=== PATIENT | female | born 1990 | race Caucasian/White ===

== ENCOUNTER 2020-11-14 17:36 | Emergency (ER) | payer MEDICAID ==
[2020-11-14 21:13] VITALS: BP 138/92
== END 2020-11-14 21:13 | disposition home or self-care (01) ==
LOC: ED 17:36
DX: J06.9 Acute upper respiratory infection, unspecified (principal); Z20.2 Contact with and (suspected) exposure to infections with a predominantly sexual mode of transmission; Z20.822 Contact with and (suspected) exposure to COVID-19
CPT/HCPCS: J0696

== ENCOUNTER → 2022-01-20 | Outpatient (CLI) | payer MEDICAID ==
[2022-01-20 11:48] LABS: BASO # 0.02 K/mm3 (0.02-0.10); EOS # 0.13 K/mm3 (0.04-0.40); EOS % 1.9 % (1.0-5.0); HEMOGLOBIN 13.1 g/dL (12.5-16.0); LYMPH# 1.15 K/mm3 (1.50-4.00); MEAN CELL VOLUME 87 fl (78-100); MEAN CORPUSCULAR HEMOGLOBIN 28 pg (27-31); MEAN CORPUSCULAR HGB CONC 33 g/dL (33-37); MEAN PLATELET VOLUME 9.8 fl (7.4-10.4); MONO # 0.68 K/mm3 (0.20-0.80); NEU # 5.02 K/mm3 (1.40-6.50); PLATELET COUNT 194 K/mm3 (130-400); RED BLOOD COUNT 4.61 M/mm3 (4.10-5.30); RED CELL DISTRIBUTION WIDTH 14.3 % (11.5-14.5)
[2022-01-20 11:49] LABS: ALBUMIN 3.7 g/dL (3.5-5.0); POTASSIUM 3.4 mmol/L (3.5-5.1)
[2022-01-20 11:50] LABS: CALCIUM 8.5 mg/dL (8.3-10.5)
[2022-01-20 11:52] LABS: TOTAL PROTEIN 6.4 g/dL (6.4-8.3)
[2022-01-20 11:53] LABS: TOTAL BILIRUBIN 0.7 mg/dL (0.2-1.2)
== END ==
LOC: LAB 11:07
PROVIDERS: Physician Assistant
DX: Z00.00 Encounter for general adult medical examination without abnormal findings (principal); Z13.29 Encounter for screening for other suspected endocrine disorder; Z13.220 Encounter for screening for lipoid disorders; J01.90 Acute sinusitis, unspecified; H92.09 Otalgia, unspecified ear; L73.9 Follicular disorder, unspecified; K90.9 Intestinal malabsorption, unspecified; Z83.3 Family history of diabetes mellitus; Z76.89 Persons encountering health services in other specified circumstances

== ENCOUNTER → 2022-10-19 | Outpatient (CLI) | payer BC, MEDICAID ==
[2022-10-19 10:48] LABS: BASO # 0.04 K/mm3 (0.02-0.10); EOS # 0.14 K/mm3 (0.04-0.40); EOS % 1.9 % (1.0-5.0); HEMATOCRIT 40.5 % (37.0-47.0); HEMOGLOBIN 12.9 g/dL (12.5-16.0); LYMPH# 1.79 K/mm3 (1.50-4.00); MEAN CELL VOLUME 84 fl (78-100); MEAN CORPUSCULAR HEMOGLOBIN 27 pg (27-31); MEAN CORPUSCULAR HGB CONC 32 g/dL (33-37); MEAN PLATELET VOLUME 9.5 fl (7.4-10.4); MONO # 0.62 K/mm3 (0.20-0.80); NEU # 4.78 K/mm3 (1.40-6.50); PLATELET COUNT 251 K/mm3 (130-400); RED BLOOD COUNT 4.81 M/mm3 (4.10-5.30); RED CELL DISTRIBUTION WIDTH 14.8 % (11.5-14.5); WHITE BLOOD COUNT 7.4 K/mm3 (4.8-10.8)
[2022-10-19 10:56] LABS: POTASSIUM 3.9 mmol/L (3.5-5.1)
[2022-10-19 10:57] LABS: CALCIUM 9.3 mg/dL (8.3-10.5)
[2022-10-19 10:59] LABS: TOTAL PROTEIN 6.9 g/dL (6.4-8.3)
[2022-10-19 11:01] LABS: TOTAL BILIRUBIN 0.4 mg/dL (0.2-1.2)
[2022-10-19 11:53] LABS: ERYTHROCYTE SEDIMENTATION RATE 2 mm/hr (0-20)
== END ==
LOC: LAB 10:20
PROVIDERS: Physician Assistant
DX: Z13.29 Encounter for screening for other suspected endocrine disorder (principal); Z13.220 Encounter for screening for lipoid disorders; R20.2 Paresthesia of skin; K90.9 Intestinal malabsorption, unspecified; K21.00 Gastro-esophageal reflux disease with esophagitis, without bleeding; E87.6 Hypokalemia; M25.50 Pain in unspecified joint; Z83.3 Family history of diabetes mellitus

== ENCOUNTER → 2022-12-07 | Outpatient (CLI) | payer BC, MEDICAID | LOC: RAD 10:15 | DX: R20.0 Anesthesia of skin (principal) | CPT/HCPCS: A9575 ==

== ENCOUNTER 2023-11-15 15:24 | Emergency (ER) | payer BC ==
[~2023-11-15] VITALS: Ht 165.1 cm; Wt 80.0 kg
[~2023-11-15 15:24] MED LIST: ALDACTONE100 M1 PO; CELECOXIB100 M1 PO; DESVENLAFAXINE50 M3 PO; FLUTICASON0.05 MG/Ac NS; OMEPRAZOLE40 MG PO; VITAMIN D3250 MC2 PO
[2023-11-15 15:33] VITALS: BP 126/75
[2023-11-15] MEDS ORDERED: WELLBUTRIN XL150 M2 PO (15:36)
[2023-11-15] MEDS ORDERED: LAMOTRIGINE25 M1 PO (15:36)
[2023-11-15] MEDS ORDERED: [UNRECOGNIZED DRUG - OTHER] SQ (15:37)
[2023-11-15] MEDS ORDERED: ESTARYLLA 35 MC1 TAB PO (15:38)
[2023-11-15] MEDS ORDERED: LORazepam 0.5 MG TABLET PO ONE (16:00)
[2023-11-15] MEDS ORDERED: ONDANSETRON HYDR4 MG PO (16:48)
== END 2023-11-15 16:57 | disposition home or self-care (01) ==
LOC: ED 15:24
DX: F41.9 Anxiety disorder, unspecified (principal)

== ENCOUNTER → 2024-03-08 | Outpatient (CLI) | payer BC ==
[~2024-03-08] MED LIST changes: +ESTARYLLA 35 MC1 TAB PO; +Iohexol 300 - 100 ML VIAL IV ONE; +LAMOTRIGINE25 M1 PO; +NS 100 ML IV ONE; +ONDANSETRON HYDR4 MG PO; +WELLBUTRIN XL150 M2 PO; +[UNRECOGNIZED DRUG - OTHER] SQ
== END ==
LOC: RAD 13:05
DX: K31.84 Gastroparesis (principal); K21.9 Gastro-esophageal reflux disease without esophagitis
CPT/HCPCS: Q9967

== ENCOUNTER → 2024-03-23 | Outpatient (CLI) | payer BC ==
[~2024-03-23] MED LIST changes: -Iohexol 300 - 100 ML VIAL IV ONE; -NS 100 ML IV ONE
== END ==
LOC: RAD 09:28
DX: N83.202 Unspecified ovarian cyst, left side (principal)